=== PATIENT | male | born 1970 | race Caucasian/White ===

== ENCOUNTER → 2023-05-14 06:30 | Day surgery (SDC) | payer OTHER, SELFPAY | LOC: GI 06:30 | PROVIDERS: ATTENDING PHYSICIAN Internal Medicine Gastroenterology | DX: Z12.11 Encounter for screening for malignant neoplasm of colon (principal); Z80.0 Family history of malignant neoplasm of digestive organs; K64.8 Other hemorrhoids; D12.4 Benign neoplasm of descending colon; K63.5 Polyp of colon | CPT/HCPCS: 45385; 45380; 88305 ==

== ENCOUNTER 2023-10-02 09:34 | Emergency (ER) | payer OTHER, SELFPAY ==
[2023-10-02 09:44] VITALS: BP 139/94
[2023-10-02 10:31] VITALS: BMI 26.0
--- NOTE | 2023-10-02 11:22 | ED.GENMED ---
History of Present Illness
General
Chief Complaint: Swelling
Source: patient
Exam Limitations: none
Time Seen by Provider: 10/02/23 10:30
Nursing documentation reviewed up to this point in time: agreed with
History of Present Illness
History of Present Illness:
Patient is a 53-year-old male who presents to the ER for evaluation. Patient has noticed some neck/shoulder discomfort on the right neck for the past several weeks however started with swelling to right lateral neck. He went to urgent care and was
sent to the ER for evaluation. He denies any actual sore throat. He did notice a small what he thought was a sore to his inner cheek that is no longer there. He denies any recent fever or chills. He denies any difficulty breathing or swallowing
secretions. He is a smoker.
Past History
Past History
ED Past Medical History: GERD
ED Past Surgical History: Orthopedic
Social History
Tobacco: Former smoker
Alcohol: Daily
Personal:
Living: with family
Employment: Employed
Review of Systems
Review of Systems
Allergies reviewed?: Yes
All Other Systems: ROS reviewed and negative except as documented in HPI and ROS
Constitutional: Reports no symptoms; Denies fever, fatigue or chills
EENT: Reports other (pt had sore to inner right mouth( now resolved ))
Respiratory: Reports no symptoms
Cardiac: Reports no symptoms
Musculoskeletal: Reports other (swelling/tenderness to right lateral neck )
Skin: Reports no symptoms
Psychiatric: Reports no symptoms
Phy Exam
General Physical Exam
General Presentation: no apparent distress
General age: appears stated age
General Skin: warm and dry
General Habitus: normal
General Mental: alert
General Hydration: appears well hydrated
ENT Exam
ENT Exam: EOMI, neck supple and other (Right tonsil feels very swollen uvula midline no drooling or trismus no inner mouth lesions)
Neurological Exam
Neurological Exam: alert and oriented x3
Musculoskeletal Exam
Musculoskeletal Exam: other (right lateral neck with swelling + palpable fullness/ questionable mass to right neck )
Skin Exam
Skin Exam: normal color and warm/dry
Scores
Heart Failure Risk
Heart Failure Risk Score: Not Applicable
Course
Orders/Labs/Results
Orders:
Orders
10/02/23 11:17
IV Insert/Care/Rem.- Treatment PRN
0.9% Sodium Chloride 1000 ml [Nss] 1,000 ml IV BOLUS
10/02/23 11:18
CT Neck With Iv Contrast Urgent
Comment:
Reason For Exam: right lateral neck
10/02/23 11:40
Complete Blood Count/With Diff Urgent
Comprehensive Metabolic Panel Urgent
Rapid Strep Group A Urgent
ALESSANDRA Source: Throat/Pharynx
Specimen Description:
Date Specimen was Collected: 10/02/23
Time Specimen was Collected: 11:35
Abnormal Lab Results
10/02/23
11:40
Glucose 137 H mg/dl
(70-99)
10/02/23 11:40
10/02/23 11:40
Vital Signs
Initial and Last Documented VS:
Initial Vital Signs
Temp Pulse Resp BP Pulse Ox
98.8 F 77 16 139/94 98
10/02/23 09:44 10/02/23 09:44 10/02/23 09:44 10/02/23 09:44 10/02/23 09:44
Last Documented Vital Signs
Temp Pulse Resp BP Pulse Ox
98.8 F 73 18 135/90 99
10/02/23 09:44 10/02/23 11:42 10/02/23 11:42 10/02/23 14:00 10/02/23 14:00
Electric Relay Tester consulted with Physician
Electric Relay Tester consulted with physician?: Yes
Name of Physician Consulted: aristeo
MDM/Problems Addressed
Differential Diagnosis Includes:
Not limited to peritonsillar abscess, mass, lymphadenopathy
MDM/Problems Addressed:
Patient is a 53-year-old male who presented with right-sided neck swelling. He had first noticed what he felt was a sore on his inner cheek. He has had some neck discomfort. He saw urgent care was sent here. CAT scan done shows unfortunately
asymmetric soft tissue thickening at the right base of tongue/tonsil region which may reflect neoplasm there is a large necrotic right neck lymph nodes likely metastatic. Patient is a smoker. He has no difficulty swallowing or tolerating
secretions. He is afebrile no difficulty breathing normal labs. On exam he does have an obvious asymmetric appearance to the right neck with swelling and palpable mass.
Case reviewed with ENT Dr Vogel to ensure prompt follow-up. Discussed with patient and the importance of calling ENT Wednesday morning and to return if any worsening of symptoms.
Chronic conditions affecting care:
+ smoker
*Radiology
Radiology exam reviewed: radiology read reviewed
*Pulse Oximetry
Patient hypoxic: no
*Critical Care Note
Total Time (30-74mins, 75-104mins- exclusive of procedures): Not Applicable
Patient Management
Discussion with other providers: Equipment Engineer (DR Vogel )
ED Attending Note
-
Portions of this chart may have been created with voice recognition software.� Occasional wrong word or��sound alike� substitutions may have occurred due to the inherent limitations of voice recognition software.
Discharge Plan
Departure
Patient Disposition: Home (Routine Discharge)
Date of Disposition: 10/02/23
Time of Disposition: 14:07
Patient with high blood pressure during this ER visit?: Yes
Covid-19: Not Applicable
Discharge Problem:
right neck swelling
Instructions: BLOOD PRESSURE
Prescriptions:
No Action
atorvastatin 20 mg tablet
10 mg PO DAILY
hydrochlorothiazide 25 mg tablet
25 mg PO DAILY
losartan 100 mg tablet
100 mg PO DAILY
omeprazole 20 mg Capsule,Delayed Release(Dr/Ec)
20 mg PO DAILY
docusate sodium 100 mg Capsule
100 mg PO BID Qty: 0 0RF
sennosides [senna] 8.6 mg Tablet
17.2 mg PO BID Qty: 0 0RF
metronidazole 500 mg tablet
500 mg PO TID Qty: 2 0RF
Rx Instructions:
take for 2 more doses
oxycodone-acetaminophen [Endocet] 5-325 mg tablet
1 tab PO Q4H PRN (Reason: severe pain) Qty: 20 0RF
Referrals:
Sean Vieira MD [Family Provider] -
Corina Vogel MD [Active] -
Activity Restrictions/Additional Instructions:
As discussed CAT scan is concerning for neoplasm.
Call ENT office Wednesday morning for prompt follow-up. Return if any worsening of symptoms of difficulty swallowing difficulty breathing difficulty tolerating your own secretions or any further concerns.
Interventions
Interventions:
*Risk Screen - Suicide Last Done: 10/02/23 10:31
*General Assessment Last Done: 10/02/23 09:47
*Neglect/Abuse Screening Last Done: 10/02/23 10:31
ED- Fall Risk Assessment Last Done: 10/02/23 10:33
*ED COVID-19 Vaccine History Last Done: 10/02/23 09:47
*Nursing Disposition Last Done: 10/02/23 14:20
ED- Cardiac Assessment Last Done: 10/02/23 10:31
ED- Pulmonary Assessment Last Done: 10/02/23 10:31
ED-Skin Assessment Last Done: 10/02/23 10:31
Discharge Date and Time
Discharge Date/Time: 10/02/23 14:21
Print Language: NORWEGIAN
[2023-10-02 11:42] VITALS: BP 137/97
[2023-10-02] MEDS: NSS 1000 IV (11:44)
[2023-10-02 11:54] LABS: % Basophils 1.3 % (0-2); % Eosinophils 2.7 % (0-6); % Immature Granulocytes 0.4 % (0-0.5); % Monocytes 5.6 % (1.7-9.3); Absolute Basophils 0.1 10^3/uL (0-0.2); Absolute Eosinophils 0.2 10^3/uL (0-0.7); Absolute Lymphocytes 2.3 10^3/uL (1.2-3.4); Absolute Monocytes 0.4 10^3/uL (0.1-0.6); Absolute Neutrophils 4.8 10^3/uL (1.4-6.5); Hematocrit 43.5 % (39.0-52.0); Hemoglobin 15.3 g/dL (13.0-18.0); Mean Corp Hgb Conc. 35.2 g/dL (33.0-37.0); Mean Corpuscular Hgb 30.1 pg (27.0-31.0); Mean Corpuscular Volume 85.5 fL (80.0-94.0); Mean Platelet Volume 9.9 fL (7.4-10.4); Nucleated Red Blood Cells % 0 % (-); Platelet Count 197 10^3/uL (130-400); Red Blood Cell Count 5.09 10^6/uL (4.70-6.10); Red Cell Dist. Width 12.3 % (11.5-14.5); White Blood Cell Count 7.9 10^3/uL (4.8-10.8)
[2023-10-02 12:20] LABS: ALT (SGPT) 27 U/L (0-50); AST (SGOT) 26 U/L (17-59); Albumin 4.2 g/dl (3.5-5.0); Alkaline Phosphatase 89 U/L (38-126); Blood Urea Nitrogen 13 mg/dl (9-20); Calcium 9.5 mg/dl (8.4-10.2); Carbon Dioxide 30 mmol/L (22-30); Chloride 101 mmol/L (98-107); Estimated Creatinine Clearance > 125 ml/min; Glucose 137 mg/dl (70-99); Potassium 3.8 mmol/L (3.5-5.1); Sodium 137 mmol/L (135-145); Total Bilirubin 0.8 mg/dl (0.2-1.3); Total Protein 6.4 g/dl (6.3-8.2); eGFR > 60.00
[2023-10-02 13:27] VITALS: BP 132/91
[2023-10-02 14:00] VITALS: BP 135/90
== END 2023-10-02 14:21 | disposition home or self-care (01) ==
LOC: EMR 09:34
PROVIDERS: Nurse Practitioner; EMERGENCY PHYSICIAN Emergency Medicine; FAMILY PHYSICIAN Family Medicine
DX: R22.1 Localized swelling, mass and lump, neck (principal); M54.2 Cervicalgia; R59.0 Localized enlarged lymph nodes; R03.0 Elevated blood-pressure reading, without diagnosis of hypertension; R93.89 Abnormal findings on diagnostic imaging of other specified body structures; K21.9 Gastro-esophageal reflux disease without esophagitis; Z87.891 Personal history of nicotine dependence; Z88.0 Allergy status to penicillin
CPT/HCPCS: 99285; 96360; 70491; 80053; 85025; 87070; 87147; 87880; Q9967

== ENCOUNTER 2024-12-13 16:09 | Outpatient (RCR) | payer OTHER, SELFPAY | END 2024-12-13 23:59 | disposition home or self-care (01) | LOC: RPT 16:09 | PROVIDERS: ATTENDING PHYSICIAN Radiology Radiation Oncology; FAMILY PHYSICIAN Nurse Practitioner Family | DX: C10.9 Malignant neoplasm of oropharynx, unspecified (principal); I89.0 Lymphedema, not elsewhere classified; M62.81 Muscle weakness (generalized); R29.3 Abnormal posture; L59.9 Disorder of the skin and subcutaneous tissue related to radiation, unspecified | CPT/HCPCS: 97110; 97140; 97163; 97530 ==

== ENCOUNTER 2025-01-16 09:20 | Outpatient (RCR) | payer OTHER, SELFPAY | END 2025-01-16 23:59 | disposition home or self-care (01) | LOC: RPT 09:20 | PROVIDERS: ATTENDING PHYSICIAN Radiology Radiation Oncology; FAMILY PHYSICIAN Nurse Practitioner Family | DX: C10.9 Malignant neoplasm of oropharynx, unspecified (principal); I89.0 Lymphedema, not elsewhere classified; M62.81 Muscle weakness (generalized); R29.3 Abnormal posture; L59.9 Disorder of the skin and subcutaneous tissue related to radiation, unspecified | CPT/HCPCS: 97110; 97112; 97140; 97530 ==

== ENCOUNTER 2025-02-13 10:47 | Outpatient (RCR) | payer OTHER, SELFPAY | END 2025-02-13 23:59 | disposition home or self-care (01) | LOC: RPT 10:47 | PROVIDERS: ATTENDING PHYSICIAN Radiology Radiation Oncology; FAMILY PHYSICIAN Nurse Practitioner Family | DX: C10.9 Malignant neoplasm of oropharynx, unspecified (principal); I89.0 Lymphedema, not elsewhere classified; M62.81 Muscle weakness (generalized); R29.3 Abnormal posture; L59.9 Disorder of the skin and subcutaneous tissue related to radiation, unspecified | CPT/HCPCS: 97112; 97140; 97530 ==

== ENCOUNTER 2025-02-27 15:33 | Outpatient (RCR) | payer OTHER, SELFPAY | END 2025-02-28 07:00 | disposition home or self-care (01) | LOC: RPT 15:33 | PROVIDERS: ATTENDING PHYSICIAN Radiology Radiation Oncology; FAMILY PHYSICIAN Nurse Practitioner Family | DX: C10.9 Malignant neoplasm of oropharynx, unspecified (principal); I89.0 Lymphedema, not elsewhere classified; M62.81 Muscle weakness (generalized); R29.3 Abnormal posture; L59.9 Disorder of the skin and subcutaneous tissue related to radiation, unspecified | CPT/HCPCS: 97140; 97530 ==